=== PATIENT | male | born 1950 | race Caucasian/White ===

== ENCOUNTER 2017-04-27 11:35 | Inpatient (IN) ==
--- NOTE | 2017-04-27 08:31 | Anesthesia Evaluation PreOp ---
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 Other Medical History: Denies Any Significant HX Anesthesia History: No Prior Anesthetic Complications, Past Anesthesia ( aortabifem BPG, right fem-pop) Alcohol Use: none Drug use: none Medications and Allergies Aspirin Enteric Coated [Aspirin EC] 81 mg PO DAILY 07/10/15 [History] Calcipotriene [Dovonex] 1 appl TP AD 07/10/15 [History] Diclofenac Sodium [Voltaren] 1 appl TP QID 07/10/15 [History] FluocinoNIDE 0.05% CRM [Lidex] 1 appl TP DAILY 07/10/15 [History] Simvastatin [Zocor] 40 mg PO HS 07/10/15 [History] predniSONE [PredniSONE] 10 mg PO BIDWM 07/10/15 [History] traMADol [Ultram] 50 mg PO TID PRN 07/10/15 [History] Clopidogrel [Plavix] 75 mg PO DAILY #30 tablet 07/12/15 [Rx] OxyCODONE Immed Rel [Roxicodone 5 MG] 1 - 2 mg PO Q4H PRN #40 tablet 07/12/15 [ Rx] 3 Allergy/AdvReac Type Severity Reaction Status Date / Time Penicillins Allergy Hives Verified 07/10/15 17:33 - Meds/Allergy Pre-op Review Medications Reviewed: Yes Allergies Reviewed: Yes Beta Blockers on Current Med List: No Anesthesia Results - Labs Laboratory Tests 04/26/17 04/26/17 13:39 13:39 Hgb 13.4 Hct 40.6 Plt Count 185 Sodium 134 L Potassium 4.4 BUN 12 Creatinine 0.74 - Imaging Additional studies: CTA: IMPRESSION: Occluded right limb of the iliac graft. Occluded fem-fem bypass graft. Occluded right fem-pop bypass graft. One-vessel runoff in the anterior tibial arteryon the right due to geniculate collaterals. Moderate stenoses left superficial femoral artery and popliteal artery with three-vessel runoff. 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
[~2017-04-27 11:35] MED LIST: Vancomycin 1,000 MG, Sodium Chloride IRRigation 1,000 ML IR ONE
[2017-04-27] MEDS ORDERED: *HR* Midazolam HCl 2 MG/2 ML VIAL ONE (11:42)
[2017-04-27] MEDS ORDERED: *HR* Propofol 200 MG/20 ML VIAL IVP ONE ×2 (11:42→18:32)
[2017-04-27] MEDS ORDERED: *HR* FentaNYL (PF) 100 MCG/2 ML VIAL ONE (11:42)
[2017-04-27] MEDS ORDERED: Lidocaine -MPF 2% 2 ML VIAL ONE ×2 (11:44→13:21)
[2017-04-27] MEDS ORDERED: *HR* Rocuronium Bromide 50 MG/5 ML VIAL ONE ×2 (11:46→15:42)
[2017-04-27] MEDS: Ringers Solution, Lactated 1,000 ML IVC SCH (12:20)
[2017-04-27] MEDS ORDERED: Acetaminophen IV 1,000 MG/100 ML INFUS..BTL ONE (12:26)
[2017-04-27] MEDS ORDERED: Heparin 1,000 UNITS/500 mL 2,000 ML ONE (12:28)
--- NOTE | 2017-04-27 12:31 | History & Physical Report ---
Date of Encounter: 04/27/17 Time of Encounter: 12:25 24 Hour HP Update - Instructions Instructions: If the History and Physical is less than 30 days old and was completed prior to A.M. admission and or procedure and has NOT been updated on calendar day of procedure please complete this update prior to performing procedure. - Update Patient reports changes in Medical Condition: No Changes in examination, assessment, or condition: No Changes in Medication: No Preop tests/diagnostics Reviewed: Yes Surgery Remains Indicated: Yes Consent for Planned Operative Procedure(s) Verified: Yes - Pre-Operative Checklist Preoperative Checklist Indicated: Yes Prophylactic Antibiotic Ordered: Yes (Vancomycin due to risk of MRSA) Home Medications Include Beta Roger: No Beta Roger Taken Today (Day of Surgery): No Beta Roger Taken Yesterday (Day Prior to Surgery): No Is VTE Prophylaxis Indicated?: Yes
[2017-04-27] MEDS ORDERED: CeFAZolin Syr 2,000MG/20 ML 2,000 MG/20 ML SYRINGE IVPB ONE (12:35)
[2017-04-27] MEDS ORDERED: Heparin 1,000 UNITS/500 mL 500 ML ONE (12:36)
[2017-04-27] MEDS ORDERED: Ketamine *HR* 500 MG/10 ML MDV ONE (12:51)
[2017-04-27] MEDS ORDERED: *HR* Succinylcholine 200 MG/10 ML VIAL IVP ONE (12:52)
[2017-04-27] MEDS ORDERED: Dexamethasone 4 MG/ML VIAL ONE (13:52)
[2017-04-27] MEDS ORDERED: Ondansetron 4 MG/2 ML VIAL ONE (13:52)
[2017-04-27] MEDS ORDERED: *HR* PHENYLEPHRINE 1,000 MCG/10 ML SYRINGE IVP ONE ×3 (13:53→17:11)
[2017-04-27] MEDS ORDERED: Ondansetron 4 MG/2 ML VIAL IVP PRN (14:26)
[2017-04-27] MEDS ORDERED: *HR* Morphine 2 MG/ML SYRINGE IVP PRN (14:26)
--- NOTE | 2017-04-27 14:30 | Anesthesia Procedures ---
Date of Encounter: 04/27/17 Time of Encounter: 13:30 Procedures: Anesthesia - Arterial Line Consent obtained: written consent Time out performed: Yes Supplemental Oxygen via Nasal Cannula (L/min): 15 (FM) Local Anesthetic: Lidocaine 1% Amount of Anesthetic used (mls): 2 Size (Gauge): 20 Length (inches): 1 3/4 Technique Used: sterile prep, guide wire technique, direct puncture technique Post-Procedure: line taped into place, dry sterile dressing placed Patient tolerated procedure: well, no complications Complications: none Site: Radial R Vitals: see anesthetic record
[2017-04-27] MEDS ORDERED: *HR* Heparin 5,000 UNIT/ML VIAL ONE ×2 (15:04→15:56)
[2017-04-27] MEDS ORDERED: *HR* Magnesium Sulfate 1 GM/2 ML VIAL ONE (15:04)
[2017-04-27] MEDS ORDERED: EPHEDrine 50 MG/ML VIAL ONE ×2 (18:04→19:37)
[2017-04-27] MEDS ORDERED: Vancomycin 1,000 MG VIAL ONE (18:21)
[2017-04-27] MEDS ORDERED: Esmolol 100 MG/10 ML VIAL IVP ONE (20:01)
[2017-04-27] MEDS ORDERED: *HR* Promethazine 25 MG/ML VIAL IVP PRN (20:19)
[2017-04-27] MEDS ORDERED: Naloxone 0.4 MG/ML INJ IVP PRN (20:19)
[2017-04-27] MEDS ORDERED: Acetaminophen 325 MG TABLET PO PRN (20:19)
[2017-04-27] MEDS ORDERED: OXYCODONE Oral CONC 10 MG/0.5 ML ORAL.SYG SL PRN ×2 (20:19)
--- NOTE | 2017-04-27 20:19 | Operative Note ---
Date of procedure: 04/27/17 Pre-op diagnosis: Peripheral Vascular Disease with Rest Pain Post-op diagnosis: same Procedure: 1. Left to right femoral to femoral artery bypass graft thrombectomy with revision of proximal and distal anastamoses with hemashield patch angioplasty. 2. Left common and deep femoral artery endarterectomy. 3. Reoperative right common femoral to below knee popliteal artery bypass graft with 6mm PTFE Distaflo MiniCuff Graft. 4. Right anterior tibial artery and tibioperoneal trunk endarterectomy with bovine pericardial patch angioplasty. Complications: None Anesthesia: GETA Surgeon: Derek Carter Was there an engineer second assistant present: No Estimated blood loss (cc): 250 Specimen: Thrombus and plaque Condition: stable Disposition: PACU Procedure in Detail: Indications: The patient is a 67 year old fmale with a history of peripheral vascular disease with rest pain and hypertension. He has previously undergone an aortobifemoral bypass, a right femoral to popliteal artery bypass and a left femoral to right femoral artery bypass. The patient presented to clinic with rest pain. A CT revealed an occluded femoral to femoral artery bypass and an occluded right femoral to popliteal artery bypass. He was noted to have significant disease distal to his right femoral to popliteal artery bypass. Revascularization was recommended to alleviate his symptoms and reduce his risk of limb loss. Procedure: The patient was identified in the preoperative area. The risks, benefits and alternatives were discussed and all questions were answered. The patient was taken to the operating room and placed in the supine position on the operating room table. After the induction of general endotracheal anesthesia, the patient was cleaned and draped in the normal sterile fashion. An oblique incision was made sharply through his previous right groin scar overlying the femoral vessels. Hemostasis was obtained with electrocautery. Through a process of blunt, sharp and electrocautery dissection, the common, deep and superficial femoral arteries were dissected and surrounded with vessel loops. The right limb of the bypass graft was also dissected and surrounded with vessel loops. An incision was made sharply through his previous right medial thigh scar. Hemostasis was obtained with electrocautery. Through a process of blunt, sharp and electrocautery dissection, the above knee popliteal artery was dissected proximal and distal to the bypass graft and surrounded with vessel loops. The distal bypass graft was also dissected and surrounded with vessel loops. The patient received a 5000 unit bolus of heparin. Additional heparin was given throughout the case to maintain anticoagulation. After waiting adequate time or the heparin to circulate, the vessels were occluded with the vessel loops. A longitudinal incision was made through the right femoral graft anastamosis and extended distally into the [place] artery. No flow was noted on release of the loops. A 4 bruneian kevin catheter was passed into the femoral to femoral artery bypass graft and inflated. It was withdrawn and some acute thrombus and chronic embolic material was retrieved. This was sent to pathology. No flow was noted at this time. Additional passes of the catheter did not result in any antegrade flow. An oblique incision was made sharply through his previous left groin scar overlying the femoral vessels. Hemostasis was obtained with electrocautery. Through a process of blunt, sharp and electrocautery dissection, the left distal iliac artery as well as the deep and superficial femoral arteries were dissected and surrounded with vessel loops. The left limb of the bypass graft was also dissected and surrounded with vessel loops. A longitudinal incision was made through the left femoral graft anastamosis and extended distally into the [place] artery. Dense intimal hyperplasia and chronic thrombus was identified. A 4 bruneian kevin catheter was passed into the femoral to femoral artery bypass graft and inflated. It was withdrawn and acute thrombus and chronic embolic material was retrieved. The balloon passed easiliy between the anastamoses A dental freer was then used to perform a left common and deep femoral artery endarterectomy. Antegrade and retrograde flow was noted through the left femoral vessels upon release of the vessel loops. On the right an endarterctomy was performed on the common femoral artery. The right superficial and deep femoral arteries were noted to be chronically occluded. The origin of the right deep femoral artery could not be identified. The vessels and graft were flushed with heparinized saline. A 4 bruneian kevin catheter was passed distally through the right femoral to popliteal artery bypass graft. Significant thrombus was retrieved. The balloon would not pass below the knee joint. The distal anastamosis was opened and the balloon was passed towards the distal popliteal artery. Additional thrombus was retrieved on the first pass. However, the balloon would not pass the popliteal fossa. The graft was transected and the distal portion was oversewn with a 3-0 Prolene. An incision was made on the left medial calf sharply. Hemostasis was obtained with electrocautery. Through a process of blunt, sharp, and electrocautery dissection, the left below-knee popliteal artery was dissected proximally and distally and surrounded with vessel loops. A 6mm PTFE Distaflo mini-cuff graft was then tunneled between the thigh and calf incisions. The below knee popliteal vessels were occluded and a longitudinal arteriotomy was made in the popliteal artery. The distal end of the graft was sutured in place with a running 6-0 Prolene, but not tied. Heparinized saline was infused into the lumen. Tension was applied to the femoral vessel loops. The graft was cut to fit the graftotomy at the above knee popliteal artery. The graft was anastamosed with a running 6-0 Prolene. The vessels were flushed through the graft and heparin was infused into the lumen. The graft was clamped with an atraumatic clamp. Thrombin and gelfoam were used at the proximal anastamosis. The distal arterial anastomosis suture line was completed. Prior to completing the closure, the popliteal vessels were flushed and reoccluded. Heparinized saline was infused into the lumen. The anastamosis was tied and then flow was restored. Polyphasic signals were noted distal to the distal anastomosis. However, no tibial signals could be identified. The below knee popliteal artery was dissected distally. Firm plaque was noted to be present at the anterior tibial artery and tibioperoneal trunk. Dissection was then performed distally and vessel loops were used to surround the anterior tibial and tibioperoneal trunk arteries. A longitudinal arteriortomy was made distal to the distal bypass anastamosis and extended onto the tibioperoneal trunk. An endarterectomy was then performed with a dental freer on the anterior tibila artery and tibioperoneal trunk artery. Dense, calcified plaque was retrieved and sent as specimen. Retrograde flow as noted from both vessels upon release of the loops. The vessels were flushed with heparinized saline. A bovine pericartial patch was cut to fit the arteriotomy and sutured in place with a running 6-0 Prolene. Prior to completing the patch, the vessels were flushed and heparinized saline was then infused. Flow was then restored. Polyphasic tibial signals were identified at the ankle. The wounds were irrigated with antibiotic-containing saline. Thrombin and gelfoam were used to aid in hemostasis. Platelet rich and platelet poor plasma were infused into the wounds. Meticulous hemostasis was obtained throughout the wound with electrocautery. Wounds were reapproximated with layers of 2-0 and 3-0 Vicryl. Skin was reapproximated with 3-0 Monocryl. Sterile dressing was applied. The patient was extubated and taken to recovery room in stable condition.
[2017-04-27] MEDS ORDERED: 0.9 % Sodium Chloride 1,000 ML IVC SCH (20:30)
[2017-04-27] MEDS ORDERED: CeFAZolin Syr 2,000MG/20 ML 2,000 MG/20 ML SYRINGE IVPB SCH (21:00)
[2017-04-27] MEDS: *HR* Rivaroxaban 15 MG TABLET PO SCH (21:23)
[2017-04-27] MEDS: *HR* OxyCODONE Immed Rel 5 MG TABLET PO PRN (22:06)
[2017-04-27] MEDS: CeFAZolin Premix DUPLEX 2,000 MG/50 ML BAG IVPB SCH (23:20)
--- NOTE | 2017-04-27 23:58 | Anesthesia Evaluation Post Op ---
Date of Encounter: 04/27/17 Time of Encounter: 08:30 - Vital Signs Vital Signs: Vital Signs Temp Pulse Resp BP Pulse Ox 04/27/17 20:38 97.8 F 72 16 120/72 98 04/27/17 20:28 83 16 125/76 100 04/27/17 20:18 78 18 119/76 100 04/27/17 20:08 97.5 F L 74 20 142/57 100 Intake and Output 04/27/17 04/27/17 04/27/17 07:59 15:59 23:59 Output Total 800 / 800 Balance -800 / -800 Output: Estimated Blood Loss 250 / 250 Urine Amount (Catheter) 450 / 450 Catheter 100 / 100 Other: Weight 58.967 kg Patient Weight 04/27/17 23:59 Weight 58.967 kg - Lungs Lungs: Clear Ascult./Percussion - Airway Airway: Non-obstructed - Cardiovascular Baseline Rhythm - Mental Status Mental Status: Alert & Oriented, Answers Appropriately - Pain Pain Scale: 0 Pain Scale used: Numeric (1 - 10) - Nausea Vomiting Nausea Vomiting: Not Present - Hydration Hydration: Tolerates oral liquids, Umanzor catheter - Discharge PostOp Status: Transfer Patient to floor Anes Supervising Prov Stmt: Pt seen/evaluated, VSS And pt has met criteria for discharge to floor. - MD Qamar
[2017-04-28] MEDS ORDERED: Ketorolac 15 MG/ML VIAL IVP SCH
[2017-04-28] MEDS ORDERED: Vancomycin 0 MG in D5% in Water 250 ML IVPB ONE (00:30)
[2017-04-28] MEDS: *HR* Metoprolol 5 MG/5 ML VIAL IVP SCH ×4 (00:39→17:00)
[2017-04-28] MEDS: *HR* OxyCODONE Immed Rel 5 MG TABLET PO PRN ×3 (04:03→21:40)
[2017-04-28 04:53] LABS: Basophils % 0.2 %; Hematocrit 28.5 % (37.5-50.1); Immature Granulocytes % 0.3 % (0-4); Lymphocytes # 1.1 K/mcL (0.6-4.6); Lymphocytes % 11.3 %; Mean Corpuscular HGB Conc 33.7 g/dL (31.6-35.5); Mean Corpuscular Hemoglobin 29.9 pg (28.0-33.3); Mean Corpuscular Volume 88.8 fL (83.0-100.0); Mean Platelet Volume 10.4 fL (9.4-12.4); Monocytes # 0.9 K/mcL (0.0-1.3); Monocytes % 9.4 %; Neutrophils # 7.8 K/mcL (1.6-8.9); Platelet Count 148 K/mcL (140-400); Red Blood Count 3.21 M/mcL (4.19-5.50); Red Cell Distribution Width 15.7 % (11.5-14.5); Segmented Neutrophils % 78.8 %
[2017-04-28 04:57] LABS: Hemoglobin 9.6 g/dL (12.9-16.9)
[2017-04-28 05:11] LABS: BUN/Creatinine Ratio 21 (6-26); Blood Urea Nitrogen 15 mg/dL (8-23); Carbon Dioxide 22 mEq/L (23-29); Chloride 106 mEq/L (98-107); Glucose 141 mg/dL (70-105); Osmolality,Calculated 279 (280-300); Potassium 4.6 mEq/L (3.5-5.1); Sodium 133 mEq/L (136-145); eGFR For African Americans > 60 (> 60); eGFR For Non-African Americans > 60 (> 60)
[2017-04-28] MEDS: CeFAZolin Premix DUPLEX 2,000 MG/50 ML BAG IVPB SCH ×3 (05:57→21:47)
--- NOTE | 2017-04-28 06:39 | Discharge Summary ---
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 - Hospital Course Hospital course: Mr. Villarreal is a 67 year old male - Time Spent with Patient Total time spent providing and/or coordinating discharge services: - Discharge Medications Prescriptions: OxyCODONE/APAP 5/325 [Percocet 5/325 MG] 1 each PO Q6HR PRN 6 Days #24 tablet PRN Reason: postoperative pain Rivaroxaban [Xarelto] 20 mg PO DAILY #30 tablet Home Medications: Aspirin Enteric Coated [Aspirin EC] 81 mg PO DAILY 07/10/15 [History] FluocinoNIDE 0.05% CRM [Lidex] 1 appl TP DAILY 07/10/15 [History] Atorvastatin Calcium [Lipitor] 80 mg PO HS 04/27/17 [History] Ferrous Sulfate 325 mg PO BID 04/27/17 [History] OxyCODONE/APAP 5/325 [Percocet 5/325 MG] 1 each PO Q6HR PRN 6 Days #24 tablet [Rx] Rivaroxaban [Xarelto] 20 mg PO DAILY #30 tablet 04/28/17 [Rx] Allergies/Adverse Reactions: 3 Allergy/AdvReac Type Severity Reaction Status Date / Time Penicillins Allergy Hives Verified 04/27/17 12:33 Date of admission: 04/27/17 20:51 Primary care physician: Edgar Aponte MD Procedure(s) Performed: FEM-FEM bypass graft thrombectomy with revision, right femoral to below knee popliteal artery bypass, right tibial endaterterectomy. Discharging clinician: Derek Carter Anticipated date of discharge: 04/28/17 Exam Vital Signs, Last 4 Hours Temp Pulse Resp BP Pulse Ox 04/28/17 04:00 75 107/67 04/28/17 03:57 97.9 F 65 16 111/68 95 04/28/17 03:00 66 111/68 - Patient Status Disposition: Home, Self-Care Condition: Good Functional capacity at discharge: independent ambulation Overall status at discharge: patient is back to baseline - Discharge Instructions Follow Up With: Derek Carter MD [Partnered Physician] - 06/08/17 1:00 am Edgar Aponte MD [Primary Care Provider] - 05/05/17 11:00 am Additional Instructions: MAY REMOVE BANDAGES AND SHOWER ON 04/29/17. NO TUB BATHS OR SWIMMING UNTIL 05/24/17. WASH WOUNDS GENTLY AND PAT TO DRY. APPLY DRY GAUZE TO GROIN WOUND DAILY FOR [address] CARTER AT [phone] WITH QUESTIONS OR CONCERNS. - Diet and Activity Activity: increase activity as tolerated Diet: advance to your usual diet - VTE Documentation of Mechanical Device: Intermittent pneumatic compression device
[2017-04-28] MEDS: *HR* Rivaroxaban 15 MG TABLET PO SCH ×2 (08:04→21:41)
[2017-04-28] MEDS: FluocinoNIDE 0.05% CRM 15 GM TUBE TP SCH (08:05)
[2017-04-28] MEDS: Aspirin Enteric Coated 81 MG Tablet PO SCH (08:05)
[2017-04-28] MEDS: *HR* HYDROcodone/Acet 5/325 mg TABLET PO PRN (08:06)
[2017-04-28] MEDS: Ringers Solution, Lactated 1,000 ML IVC SCH (14:03)
[2017-04-29] MEDS: *HR* HYDROcodone/Acet 5/325 mg TABLET PO PRN ×2 (00:13→08:25)
[2017-04-29] MEDS: *HR* Metoprolol 5 MG/5 ML VIAL IVP SCH ×3 (00:14→11:40)
[2017-04-29] MEDS ORDERED: *HR* Heparin 5,000 UNIT/ML VIAL SQ SCH (06:00)
[2017-04-29] MEDS: FluocinoNIDE 0.05% CRM 15 GM TUBE TP SCH (08:22)
[2017-04-29] MEDS: *HR* Rivaroxaban 15 MG TABLET PO SCH (08:24)
[2017-04-29] MEDS: Aspirin Enteric Coated 81 MG Tablet PO SCH (08:24)
[2017-04-29 12:39] VITALS: BP 100/66
--- NOTE | 2017-04-29 12:42 | Physician Discharge Referral ---
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 For more information, call the [employer] Quit Line at 3-054-LGYA-NOW. - Dressing/Wound Care Site: Bilateral groins - Dry gauze daily for 7 days. Right thigh and calf - Dry gauze prn. - Diet/Nutrition Diet/Nutrition Orders: Regular - Activity Activity Orders: Up ad sandra - Services Needed Following services are medically necessary services: Home Health Aide, Physical Therapy - Transfer Medications Prescriptions: OxyCODONE/APAP 5/325 [Percocet 5/325 MG] 1 each PO Q6HR PRN 6 Days #24 tablet PRN Reason: postoperative pain Rivaroxaban [Xarelto] 20 mg PO DAILY #30 tablet Home Medications: Aspirin Enteric Coated [Aspirin EC] 81 mg PO DAILY 07/10/15 [History] FluocinoNIDE 0.05% CRM [Lidex] 1 appl TP DAILY 07/10/15 [History] Atorvastatin Calcium [Lipitor] 80 mg PO HS 04/27/17 [History] Ferrous Sulfate 325 mg PO BID 04/27/17 [History] OxyCODONE/APAP 5/325 [Percocet 5/325 MG] 1 each PO Q6HR PRN 6 Days #24 tablet [Rx] Rivaroxaban [Xarelto] 20 mg PO DAILY #30 tablet 04/28/17 [Rx] Allergies/Adverse Reactions: 3 Allergy/AdvReac Type Severity Reaction Status Date / Time Penicillins Allergy Hives Verified 04/27/17 12:33 Certification: Further, I certify that my clinical findings support that this patient is homebound (i.e. absences from home require considerable and taxing effort and are for medical reasons or mu-ism services or infrequently or short duration when for other reasons) because: Homebound Reason: Post-surgery restriction and or conditions limit ability to leave home, Leaving home requires considerable and taxing effort due to condition Attestation: My signature below is to certify that this patient is under my care and that I, or nurse practitioner, or a physician's pier master assistant working with me, has a face-to -face encounter with this patient.
[2017-04-29] MEDS: *HR* OxyCODONE Immed Rel 5 MG TABLET PO PRN (15:59)
--- NOTE | 2017-04-30 10:43 | Vascular/[facility] Progress Note ---
Date of Encounter: 04/29/17 Time of Encounter: 12:00 - Assessment and plan (1) Atherosclerosis of lower extremity with rest pain Status: Chronic Healing well postoperative day #2 after his thormbectomy, endarterectomy and bypass. PT evaluation today. Home today. Qualifiers: Peripheral atherosclerosis artery type: bypass graft, nonbiological Laterality: right Qualified Code(s): I70.621 - Atherosclerosis of nonbiological bypass graft(s) of the extremities with rest pain, right leg (2) Mixed hyperlipidemia Status: Chronic (3) Unspecified essential hypertension Status: Chronic (4) Chronic anemia Status: Chronic (5) Urinary retention due to benign prostatic hyperplasia Status: Chronic Unable to void after hamlin removed yesterday. Hamlin replaced. He was unable to void today after it was removed. His catheter will be replaced and he will follow-up with Urology as an outpatient. - Subjective Interval history: Discharge held yesterday due to inability to void. He had his catheter replaced. He was unable to void after it was removed. He is otherwise without complaints. - Physical Examination General: Present: Conversant Cardiac: Present: Reg Rate and Rhythm Lungs: Present: Normal Breath Sounds Neuro: Present: Alert and responsive Vascular: Present: Normal capillary refill, Pulse, normal (right pedal signals polyphasic), Surgical incisions (incisions clean, dry and intact without erythema or drainage) Abdomen: Present: Soft Skin: Present: No rashes noted on visualized skin - VTE Documentation of Mechanical Device: Intermittent pneumatic compression device Results 04/28/17 03:55 04/28/17 03:55 Consult Discharge Plan - Plan Instructions: Peripheral Vascular Disorders (GEN) Additional Instructions: MAY REMOVE BANDAGES AND SHOWER ON 04/29/17. NO TUB BATHS OR SWIMMING UNTIL 05/24/17. WASH WOUNDS GENTLY AND PAT TO DRY. APPLY DRY GAUZE TO GROIN WOUND DAILY FOR [address] TIAN AT [phone] WITH QUESTIONS OR CONCERNS. Referrals: Derek Tian MD [Partnered Physician] - 06/08/17 1:00 am Edgar Aponte MD [Primary Care Provider] - 05/05/17 11:00 am Alexander Patel MD [Partnered Physician] - 05/06/17 7:30 am Prescriptions: OxyCODONE/APAP 5/325 [Percocet 5/325 MG] 1 each PO Q6HR PRN 6 Days #24 tablet PRN Reason: postoperative pain Rivaroxaban [Xarelto] 20 mg PO DAILY #30 tablet
== END 2017-04-29 16:12 | disposition home or self-care (01) | DRG 254 ==
LOC: SAMDAY 11:35 → 2NNU 20:51
PROVIDERS: ADMIT Surgery; ATTEND Surgery

== ENCOUNTER 2017-10-07 12:38 | Inpatient (IN) ==
[2017-10-07] MEDS ORDERED: *HR* HYDROcodone/Acet 5/325 mg TABLET PO PRN ×2 (12:57→20:29)
[2017-10-07] MEDS ORDERED: Naloxone 0.4 MG/ML INJ IVP PRN ×2 (12:57→20:29)
[2017-10-07] MEDS ORDERED: *HR* OxyCODONE Immed Rel 5 MG TABLET PO PRN ×2 (12:57→20:29)
[2017-10-07] MEDS ORDERED: Acetaminophen 325 MG TABLET PO PRN ×2 (12:57→20:29)
[2017-10-07] MEDS ORDERED: OXYCODONE Oral CONC 10 MG/0.5 ML ORAL.SYG SL PRN ×4 (12:57→20:29)
--- NOTE | 2017-10-07 13:03 | Vascular/Endovascular H&P ---
Date of Encounter: 10/07/17 Time of Encounter: 11:30 Assessment and Plan (1) Atherosclerosis of lower extremity with rest pain Current Visit: No Status: Acute The patient has acute on chronic right lower extremity ischemia secondary to graft occlusion. His right lower extremity has a diminished pulse and decreased sensation. The patient reports disabling claudication as well as nocturnal rest pain. The patient also has a large nonhealing ulcer on the right medial distal calf. His FEM-FEM and right FEM-POP bypasses are occluded. His right ankle-brachial index is 0.0. The patient needs revascularization to reduce his risk of limb loss. Due to his advanced disease , he was informed that he is at increased risk for limb loss. A potential need for a right above-knee amputation was discussed with the patient He expressed understanding and wishes to proceed. Qualifiers: Peripheral atherosclerosis artery type: bypass graft, nonbiological Laterality: right Qualified Code(s): I70.621 - Atherosclerosis of nonbiological bypass graft(s) of the extremities with rest pain, right leg (2) Mixed hyperlipidemia Current Visit: No Status: Chronic He was counseled regarding atherosclerotic risk factor reduction. (3) Unspecified essential hypertension Current Visit: No Status: Chronic History of Present Illness Chief complaint: Peripheral vascular disease with rest pain and ulceration HPI: Mr. Villarreal is a 67 year old male with a history of hypertension, hyperlipidemia and peripheral vascular disease. He has previously undergone an aortobifemoral bypass, a FEM-FEM bypass and a rightfemoral to popliteal artery bypass. He has also required revision of his bypasses with thrombectomy. He now presents with acute on chronic limb ischemia due to graft occlusion. He reports that his symptoms began last Wednesday and have progressed. He reports severe disabling claudication and nocturnal rest pain. He reports a chronic right distal leg ulceration. He denies any gangrene. He denies chest pain or shortness of breath. Past Med Surg Social Fam HX - Past Medical History Medical history: hyperlipidemia, hypertension, peripheral artery disease Psychiatric history: no psych history - Past Surgical History Surgical History: vascular surgery Additional surgical history: Aortobifemoral bypass 2006, right femoral to above- knee popliteal artery bypass 2007, femoral to femoral artery bypass 2015, graft thrombectomy 04/2017 - Social History Smoking Status: Never smoker Smokeless Tobacco Status: No Alcohol use: none Drug use: none - Family History Father Living Status: Hx Family Cancer: Yes Mother Hx Family Neurologic Disorders: Yes (Alzheimers) Medications and Allergies Aspirin Enteric Coated [Aspirin EC] 81 mg PO HS 07/10/15 [History] Atorvastatin Calcium [Lipitor] 80 mg PO HS 04/27/17 [History] Ferrous Sulfate 325 mg PO BID 04/27/17 [History] Clopidogrel [Plavix] 75 mg PO HS 10/07/17 [History] 3 Allergy/AdvReac Type Severity Reaction Status Date / Time Penicillins Allergy Hives Verified 10/07/17 14:33 All Systems Review: The remainder of the systems were reviewed and are negative - Constitutional Constitutional: no chills, no fever(s) - Cardiovascular Cardiovascular: no chest pain at rest, no dyspnea at rest - Vascular Vascular: claudication, lower extremity coldness - Gastrointestinal Gastrointestinal: no abdominal pain Exam General: Present: Conversant, No Apparent Distress Neck: Absent: JVD, Left Carotid bruit, Right Carotid bruit Cardiac: Present: Reg Rate and Rhythm, Normal S1 and S2 Lungs: Present: Normal Breath Sounds, No Wheeze, Rales, Rhonchi Neuro: Present: Alert and responsive, Motor nerves grossly intact (Left), Sensory nerves grossly intact (Left), Other (Diminished sensation at left foot, right foot motor function mildly diminished.) Abdomen: Present: Soft, Non-tender Vascular: Present: Normal capillary refill (Left), Capillary refill delayed ( right), Pulse, absent (right femoral through tibials), Pulse, normal (Left lower extremity), Cyanosis (right foot), Color/Temperature (right foot cool compared to left) Skin: Present: No rashes noted on visualized skin, Wound/ulcer(s) (Large ulcer present on the right medial calf distal to the right below-knee incision, no erythema or drainage) Results 10/07/17 13:36 - Imaging / Other Tests Non Invasive Vascular Testing: report reviewed (Left to right femoral to femoral artery bypass occluded. Right femoral to popliteal artery bypass graft occluded. Right BETTY 0.0.)
--- NOTE | 2017-10-07 13:59 | Anesthesia Evaluation PreOp ---
Date of Encounter: 10/07/17 Time of Encounter: 13:57 - Past History Planned Operation: BLE thrombectomy, possible revision Cardiac History: HTN, Hyperlipidemia, Other (PVDz s/p mulitple revascularization surgeries, and revision bypasses) Pulmonary History: Former smoker (quit >10yrs ago) MORNING NANNY History: Denies Any Significant HX Other Medical History: Denies Any Significant HX Anesthesia History: No Prior Anesthetic Complications, Past Anesthesia (Aorto- BiFem Bypass, R-Fem-Pop, R-graft thrombectomy/Revision Fem-Pop) Alcohol Use: none Drug use: none Medications and Allergies Aspirin Enteric Coated [Aspirin EC] 81 mg PO HS 07/10/15 [History] Atorvastatin Calcium [Lipitor] 80 mg PO HS 04/27/17 [History] Ferrous Sulfate 325 mg PO BID 04/27/17 [History] Clopidogrel [Plavix] 75 mg PO HS 10/07/17 [History] 3 Allergy/AdvReac Type Severity Reaction Status Date / Time Penicillins Allergy Hives Verified 10/07/17 14:33 - Meds/Allergy Pre-op Review Medications Reviewed: Yes Allergies Reviewed: Yes Beta Blockers on Current Med List: No Anesthesia Results - Labs 10/07/17 13:36 Laboratory Results WBC 6.3 K/mcL (4.3-11.1) 10/07/17 13:36 RBC 4.57 M/mcL (4.19-5.50) 10/07/17 13:36 Hgb 13.4 g/dL (12.9-16.9) 10/07/17 13:36 Hct 39.6 % (37.5-50.1) 10/07/17 13:36 MCV 86.7 fL (83.0-100.0) 10/07/17 13:36 MCH 29.3 pg (28.0-33.3) 10/07/17 13:36 MCHC 33.8 g/dL (31.6-35.5) 10/07/17 13:36 RDW 15.2 % (11.5-14.5) H 10/07/17 13:36 Plt Count 172 K/mcL (140-400) 10/07/17 13:36 MPV 9.5 fL (9.4-12.4) 10/07/17 13:36 Immature Gran % 0.3 % (0-4) 10/07/17 13:36 Seg Neutrophils % 64.7 % 10/07/17 13:36 Lymphocytes % 20.4 % 10/07/17 13:36 Monocytes % 12.0 % 10/07/17 13:36 Eosinophils % 2.1 % 10/07/17 13:36 Basophils % 0.5 % 10/07/17 13:36 Neutrophils # 4.1 K/mcL (1.6-8.9) 10/07/17 13:36 Lymphocytes # 1.3 K/mcL (0.6-4.6) 10/07/17 13:36 Monocytes # 0.8 K/mcL (0.0-1.3) 10/07/17 13:36 Eosinophils # 0.1 K/mcL (0.0-0.6) 10/07/17 13:36 Basophils # 0.0 K/mcL (0.0-0.2) 10/07/17 13:36 PT 12.4 Seconds (9.4-12.1) H 10/07/17 13:36 INR 1.1 10/07/17 13:36 APTT 33.8 Seconds (26.0-36.0) 10/07/17 13:36 Specimen Rejected Hemolyzed 10/07/17 13:28 Blood Type AB POSITIVE 10/07/17 13:35 Antibody Screen NEGATIVE 10/07/17 13:35 Crossmatch See Detail 10/07/17 13:35 - Imaging EKG: image reviewed (48bpm - SINUS BRADYCARDIA Electronically Signed On 2017 14:23:10 EST by Oscar Domingo MD) Additional studies: 10/06/2017 Imaging Bypass Grafts: The common femoral artery to common femoral artery synthetic bypass graft is occluded. The inflow vessel is occluded. The proximal anastomosis is occluded. The proximal graft body is occluded. The mid graft body is occluded. The distal graft body is occluded. The distal anastomosis is occluded. The outflow vessel is occluded. The right common femoral artery to popliteal artery below knee synthetic bypass graft is occluded. The inflow vessel is occluded. The proximal anastomosis is occluded. The proximal graft body is occluded. The mid graft body is occluded. The distal graft body is occluded. The distal anastomosis is occluded. The outflow vessel is occluded. Prior Study: Significant changes noted compared to prior study dated: 07/24/2017. PREVIOUS PATIENT FEM FEM AND RT FEM POP GRAFTS. Anesthesia Exam Vital Signs Temp Pulse Resp BP Pulse Ox 10/07/17 13:24 98.2 F 61 18 197/98 98 Intake and Output 10/06/17 10/07/17 10/07/17 23:59 07:59 15:59 Other: Weight 52.118 kg Patient Weight 10/07/17 23:59 Weight 52.118 kg Height: 5'7" Weight: 114# 52kG NPO (# of Hours): 0800 Coffee w/cream & sugar - HEENT Pupil (Motor): Pupils equal, EOMI Mallampati: II Teeth: Edentulous Oral Opening: Greater than 3 - MORNING NANNY LOC: Oriented MORNING NANNY Motor: Normal RUE, Normal LUE, Normal RLE, Normal LLE, Normal Face MORNING NANNY Sensory: Normal: RUE, LUE, RLE, LLE, Face - Cardiac Rhythm: Regular Murmur: None - Pulmonary Breath Sounds: bilateral Clear Respiratory Effort: Symmetrical Anesthesia Assess/Plan ASA Score: 3 (PVDz, HTN, Chol, Former smoker) Modified [place] Scale for Level of Consciousness: Cooperative, oriented, and tranquil Anesthetic Plan: General Monitoring Plan: Standard Monitors Recovery Plan: PACU Anes Supervising Prov Stmt: Pt seen/evaluated, R&B Discussed, questions answered and consent obtained. Russell Foote MD
[2017-10-07 14:01] LABS: Basophils % 0.5 %; Eosinophils # 0.1 K/mcL (0.0-0.6); Eosinophils % 2.1 %; Hematocrit 39.6 % (37.5-50.1); Hemoglobin 13.4 g/dL (12.9-16.9); Immature Granulocytes % 0.3 % (0-4); Lymphocytes # 1.3 K/mcL (0.6-4.6); Lymphocytes % 20.4 %; Mean Corpuscular HGB Conc 33.8 g/dL (31.6-35.5); Mean Corpuscular Hemoglobin 29.3 pg (28.0-33.3); Mean Corpuscular Volume 86.7 fL (83.0-100.0); Mean Platelet Volume 9.5 fL (9.4-12.4); Monocytes # 0.8 K/mcL (0.0-1.3); Neutrophils # 4.1 K/mcL (1.6-8.9); Platelet Count 172 K/mcL (140-400); Red Blood Count 4.57 M/mcL (4.19-5.50); Red Cell Distribution Width 15.2 % (11.5-14.5); Segmented Neutrophils % 64.7 %
[2017-10-07 14:11] LABS: INR 1.1; Prothrombin Time 12.4 Seconds (9.4-12.1)
[2017-10-07 14:14] LABS: Activated Partial Thrombo Time 33.8 Seconds (26.0-36.0)
[2017-10-07] MEDS ORDERED: Heparin 1,000 UNITS/500 mL 500 ML ONE (14:48)
[2017-10-07] MEDS ORDERED: *HR* Propofol 200 MG/20 ML VIAL IVP ONE (14:55)
[2017-10-07] MEDS ORDERED: *HR* FentaNYL (PF) 100 MCG/2 ML VIAL ONE ×2 (14:55→15:42)
[2017-10-07] MEDS ORDERED: Ondansetron 4 MG/2 ML VIAL ONE (14:57)
[2017-10-07] MEDS ORDERED: *HR* Succinylcholine 200 MG/10 ML VIAL IVP ONE (14:57)
[2017-10-07] MEDS ORDERED: Lidocaine -MPF 2% 2 ML VIAL ONE ×2 (14:57→15:24)
[2017-10-07] MEDS ORDERED: Dexamethasone 4 MG/ML VIAL ONE (14:57)
[2017-10-07] MEDS ORDERED: *HR* Heparin 5,000 UNIT/ML VIAL ONE (15:16)
[2017-10-07] MEDS ORDERED: *HR* PHENYLEPHRINE 1,000 MCG/10 ML SYRINGE IVP ONE (15:16)
[2017-10-07] MEDS ORDERED: *HR* Remifentanil 1 MG VIAL IVP ONE (15:20)
[2017-10-07] MEDS ORDERED: *HR* Phenylephrine 10 MG/ML VIAL ONE (15:21)
[2017-10-07] MEDS ORDERED: Acetaminophen IV 1,000 MG/100 ML INFUS..BTL ONE (15:27)
[2017-10-07] MEDS ORDERED: Lidocaine -MPF 2% 5 ML VIAL ONE (15:27)
[2017-10-07] MEDS ORDERED: *HR* Midazolam HCl 2 MG/2 ML VIAL ONE (15:41)
[2017-10-07] MEDS ORDERED: Vancomycin 1,000 MG VIAL ONE ×2 (15:50→17:11)
[2017-10-07] MEDS ORDERED: Heparin 1,000 UNITS/500 mL 500 ML IVC ONE (16:00)
--- NOTE | 2017-10-07 17:24 | Electrocardiograph Report ---
[address] [address] Test Date: 2017-10-07 Pat Name: Mamadou Villarreal Department: 110 Room: 2N12 Gender: M Marketing Intelligence Manager: DONALD : 1950 Requested By: Derek Carter Order Number: [id number] Reading MD: Carmen De La Cruz Measurements Intervals Cando Rate: 59 P: 73 OK: 152 QRS: 36 QRSD: 82 T: 53 QT: 394 QTc: 393 Interpretive Statements SINUS BRADYCARDIA Electronically Signed On 10-07-2017 17:22:21 EDT by Carmen De La Cruz
[2017-10-07] MEDS ORDERED: *HR* Promethazine 25 MG/ML VIAL IVP PRN (18:40)
[2017-10-07] MEDS ORDERED: *HR* HYDROmorphone (PF) 1 MG/ML SYRINGE IVP PRN (18:40)
[2017-10-07] MEDS ORDERED: Albuterol 2.5 MG/3 ML NEBULIZER IH ONE (18:40)
--- NOTE | 2017-10-07 19:35 | Operative Note ---
Date of procedure: 10/07/17 Pre-op diagnosis: Peripheral vascular disease with acute right lower extremity ischemia Post-op diagnosis: same Procedure: 1. Femoral to femoral bypass graft thrombectomy with 5-Ivorian Kimberly embolectomy catheter. 2. Right femoral to popliteal artery bypass graft with 4-Ivorian and 3-Ivorian Kimberly embolectomy catheters Complications: None Anesthesia: ROBBIE Surgeon: Derek Carter Was there an medical technician assistant present: No Estimated blood loss (cc): 50 Specimen: Graft thrombosis Condition: stable Disposition: PACU Procedure in Detail: Indications: The patient is a 67-year-old male with a long history of peripheral vascular disease. He has recently undergone multiple procedures including an aortobifemoral bypass and right femoral to popliteal artery bypass a femoral to femoral artery bypass and prior graft thrombectomy. The patient presented to clinic with acute on chronic right lower extremity ischemia. He is also found have a chronic ulcer on the right calf. Duplex revealed that his femoral to femoral and right femoral to popliteal artery bypass grafts were occluded. The patient was then taken to the operating room for graft thrombectomy for revascularization. Procedure: The patient was identified in the preoperative area. The risks, benefits and alternatives were discussed with him and all questions were answered. The patient was then taken to the operating room and placed in the supine position on the operating table. The induction of general endotracheal anesthesia he was cleaned and draped in the normal sterile fashion. An oblique incision was made to the right groin scar sharply. Hemostasis was obtained with electrocautery. Through a process of blunt, sharp and electrocautery dissection the right femoral vessels and right limb of the femorofemoral bypass graft as well as the proximal end of the right femoral to popliteal artery bypass graft were dissected. The patient received 5000 units of heparin intravenously. After waiting adequate time for the heparin to circulate the grafts and vessels were occluded. A longitudinal arteriotomy was made into the anterior surface of the artery and extended into the femoral to popliteal artery bypass. Dense chronic thrombosis was identified within the right common femoral artery. Upon release of the clamps was no retrograde bleeding in the origin of the superficial femoral and deep femoral arteries could not be identified. A 5- Ivorian Kimberly and was re-catheter was passed through the femoral to femoral artery bypass. The balloon was inflated upon retrieval of acute and chronic thrombus, vigorous pulsatile flow was noted through the graft. After multiple passes no additional thrombus was retrieved. The bypass was flushed and clamped. A 4-Ivorian Kimberly embolus to be catheter was then passed distally into the right femoral to popliteal artery bypass graft. Upon retrieval significant thrombus was returned with acute and chronic components were present. Multiple additional passes did not reveal any additional thrombus. Minimal retrograde flow was noted. A 3-Ivorian Kimberly catheter was advanced distally through the graft. The 3-Ivorian Kimberly catheter would not pass into the level beyond the mid-calf. The graft was flushed with heparinized saline. The graftotomy was repaired with a running 5-0 Prolene suture. A strong pulse was noted left femoral vessels and flow was confirmed via Doppler. The wound was irrigated with antibiotic containing saline. Meticulous hemostasis was obtained throughout the procedure with electrocautery. Platelet rich and platelet poor plasma were infused into the wound. The wound was reapproximated with 2-0 Vicryl and 3-0 Vicryl suture. The skin was reapproximated with 3-0 Monocryl suture. A sterile dressing was applied. The patient was extubated and taken to the recovery room in stable condition.
--- NOTE | 2017-10-07 19:42 | Anesthesia Procedures ---
Date of Encounter: 10/07/17 Time of Encounter: 15:40 Procedures: Anesthesia - Arterial Line Consent obtained: verbal consent Time out performed: Yes Sedation: Versed (mg): 1 Sedation: Fentanyl (mcg): 1 Supplemental Oxygen via Nasal Cannula (L/min): 2 Local Anesthetic: Lidocaine 1% Amount of Anesthetic used (mls): 3 Size (Gauge): 20 Length (inches): 1 3/4 Technique Used: sterile prep, guide wire technique, direct puncture technique Post-Procedure: line taped into place Patient tolerated procedure: well, no complications Complications: none Site: Radial R Anes Supervising Prov Stmt: Sterile P&D, Landmarks identified. R-radial pulse palpated and readily cannulated w/ 20G Arrow. +BRB. Seldinger technique, CAtheter easily over wire. Catheter secured in place. Appropriate pulsatile flow noted in line. Appropriate wave forms noted on Monitor. Pt tolerated procedure well and without immediate complications. Russell Foote MD
--- NOTE | 2017-10-07 20:05 | Anesthesia Evaluation Post Op ---
Date of Encounter: 10/07/17 Time of Encounter: 20:05 - Vital Signs Vital Signs: Vital Signs/O2 Sat, Most Current Temp Pulse Resp BP Pulse Ox 99.3 F 96 22 144/81 100 10/07/17 19:33 10/07/17 19:53 10/07/17 19:53 10/07/17 19:53 10/07/17 19:53 - Lungs Lungs: Clear Ascult./Percussion - Airway Airway: Non-obstructed - Cardiovascular Regular Rate - Mental Status Mental Status: Alert & Oriented, Answers Appropriately - Pain Pain Scale: 0 Pain Scale used: Numeric (1 - 10) - Hydration Hydration: Ice chips, Uamnzor catheter - Discharge PostOp Status: Transfer Patient to floor
[2017-10-07 20:27] LABS: BUN/Creatinine Ratio 17 (6-26); Blood Urea Nitrogen 11 mg/dL (8-23); Calcium 9.3 mg/dL (8.6-10.3); Carbon Dioxide 24 mEq/L (23-29); Chloride 99 mEq/L (98-107); Glucose 79 mg/dL (70-105); Osmolality,Calculated 272 (280-300); Potassium 3.7 mEq/L (3.5-5.1); Sodium 132 mEq/L (136-145); eGFR For Non-African Americans > 60 (> 60)
[2017-10-07] MEDS ORDERED: *HR* Heparin 5,000 UNIT/ML VIAL IVP ONE (20:29)
[2017-10-07] MEDS ORDERED: *HR* Heparin 5,000 UNIT/ML VIAL IVP PRN ×2 (20:29)
[2017-10-07] MEDS ORDERED: *HR* Labetalol 20 MG/4 ML SYRINGE IVP PRN (20:29)
[2017-10-07] MEDS ORDERED: Heparin 25,000 UNIT/500 ML D5W 25,000 UNIT/500 ML BAG IVC SCH (20:29)
[2017-10-07] MEDS ORDERED: Ondansetron 4 MG/2 ML VIAL IVP PRN (20:29)
[2017-10-07] MEDS ORDERED: 0.9 % Sodium Chloride 1,000 ML IVC SCH (20:29)
[2017-10-07 20:53] LABS: Hematocrit 41.5 % (37.5-50.1); Hemoglobin 13.9 g/dL (12.9-16.9); Mean Corpuscular HGB Conc 33.5 g/dL (31.6-35.5); Mean Corpuscular Hemoglobin 28.8 pg (28.0-33.3); Mean Corpuscular Volume 85.9 fL (83.0-100.0); Mean Platelet Volume 9.9 fL (9.4-12.4); Platelet Count 181 K/mcL (140-400); Red Blood Count 4.83 M/mcL (4.19-5.50); Red Cell Distribution Width 15.2 % (11.5-14.5)
[2017-10-07] MEDS ORDERED: Aspirin Enteric Coated 81 MG Tablet PO SCH (21:00)
[2017-10-07 21:05] LABS: Heparin anti-factor XA UFH 0.61 IU/mL (0.30-0.70)
[2017-10-07 21:06] LABS: INR 1.1; Prothrombin Time 12.6 Seconds (9.4-12.1)
[2017-10-07] MEDS: *HR* Metoprolol 5 MG/5 ML VIAL IVP SCH (23:30)
[2017-10-08 04:01] LABS: Basophils % 0.4 %; Hematocrit 36.1 % (37.5-50.1); Immature Granulocytes % 0.7 % (0-4); Lymphocytes % 14.2 %; Mean Corpuscular HGB Conc 33.5 g/dL (31.6-35.5); Mean Corpuscular Hemoglobin 28.4 pg (28.0-33.3); Mean Corpuscular Volume 84.7 fL (83.0-100.0); Mean Platelet Volume 9.6 fL (9.4-12.4); Monocytes # 0.6 K/mcL (0.0-1.3); Monocytes % 8.6 %; Neutrophils # 5.6 K/mcL (1.6-8.9); Platelet Count 181 K/mcL (140-400); Red Blood Count 4.26 M/mcL (4.19-5.50); Red Cell Distribution Width 15.3 % (11.5-14.5); Segmented Neutrophils % 76.1 %
[2017-10-08 04:03] LABS: Hemoglobin 12.1 g/dL (12.9-16.9)
[2017-10-08 04:25] LABS: BUN/Creatinine Ratio 21 (6-26); Blood Urea Nitrogen 12 mg/dL (8-23); Calcium 8.8 mg/dL (8.6-10.3); Carbon Dioxide 21 mEq/L (23-29); Chloride 99 mEq/L (98-107); Glucose 87 mg/dL (70-105); Osmolality,Calculated 269 (280-300); Potassium 3.6 mEq/L (3.5-5.1); Sodium 130 mEq/L (136-145); eGFR For Non-African Americans > 60 (> 60)
[2017-10-08] MEDS: *HR* Metoprolol 5 MG/5 ML VIAL IVP SCH ×2 (05:03→11:35)
[2017-10-08] MEDS ORDERED: *HR* Heparin 5,000 UNIT/ML VIAL SQ SCH (06:00)
--- NOTE | 2017-10-08 07:47 | Discharge Summary ---
Orders not resulted at time of discharge: Pending orders 10/07/17 13:35 Red Blood Cells [BBK] Stat Type and Screen [BBK] Stat 10/07/17 18:56 Surgical Pathology [PTH] Routine 10/08/17 09:30 Heparin anti-factor XA UFH [COAG] Timed 10/09/17 04:00 Basic Metabolic Panel AM 0400 Complete Blood Count [HEME] AM 0400 Date of Encounter: 10/08/17 Time of Encounter: 07:40 - Discharge Diagnosis (1) Atheroscler nonbiologic bypass graft right leg w/ulceration calf Priority: Primary Status: Chronic Comments: The patient is postoperative day #1 after femoral to femoral artery bypass graft thrombectomy and right femoral popliteal artery bypass graft thrombectomy. He continues to have no signal at the level of the ankle. However he does have improved motor and sensory function. His pain is controlled with oxycodone. His wound is clean and dry and intact without any erythema or drainage. The patient may be discharged home today. He will need follow-up in clinic in 1-2 weeks for further evaluation. He will be started on cilostazol. He was informed that if he fails to heal his right leg wound or has progression of his symptoms will likely require a right above-knee amputation. (2) Mixed hyperlipidemia Priority: Secondary Status: Chronic (3) Unspecified essential hypertension Priority: Secondary Status: Chronic - Hospital Course Hospital course: Mr. Villarreal is a 67 year old male presented to [facility] with acute on chronic peripheral vascular disease of the right lower extremity. He initially reported symptoms for approximately 4-5 days but then later stated that his symptoms have been occurring for a longer period of time. The patient was found have a right lower extremity ulceration. He is found to have occluded grafts. He underwent a right femoral to popliteal artery bypass graft thrombectomy and a [id number]-rr-[id number] femoral to femoral bypass graft thrombectomy. He reports symptomatic improvement on postop day #1. He had improved motor and sensory function. However he did not have any pedal signals at the level of the ankle. His pain was adequately controlled on postoperative day #1. He was discharged in stable condition. - Time Spent with Patient Total time spent providing and/or coordinating discharge services: - Discharge Medications Prescriptions: OxyCODONE/APAP 5/325 [Percocet 5/325 MG] 1 each PO Q6HR PRN 7 Days #28 tablet PRN Reason: postoperative pain Cilostazol 50 mg PO BID #60 tablet Home Medications: Atorvastatin Calcium [Lipitor] 80 mg PO HS 04/27/17 [History] Ferrous Sulfate 325 mg PO BID 04/27/17 [History] Clopidogrel [Plavix] 75 mg PO HS 10/07/17 [History] Cilostazol 50 mg PO BID #60 tablet 10/08/17 [Rx] OxyCODONE/APAP 5/325 [Percocet 5/325 MG] 1 each PO Q6HR PRN 7 Days #28 tablet [Rx] Allergies/Adverse Reactions: 3 Allergy/AdvReac Type Severity Reaction Status Date / Time Penicillins Allergy Hives Verified 10/07/17 14:33 Date of admission: 10/07/17 12:50 Primary care physician: Edgar Aponte MD Procedure(s) Performed: Tzig-il-hbeuc femoral to femoral artery bypass graft thrombectomy, right femoral -popliteal artery bypass graft thrombectomy. Discharging clinician: Derek Carter Anticipated date of discharge: 10/08/17 Exam Vital Signs, Last 4 Hours Temp Pulse Resp BP Pulse Ox 10/08/17 04:04 98.5 F 64 18 116/68 95 General: Present: Conversant, No Apparent Distress Neck: Absent: JVD Cardiac: Present: Reg Rate and Rhythm Lungs: Present: Normal Breath Sounds Neuro: Present: Alert and responsive, Motor nerves grossly intact, Sensory nerves grossly intact, Other (Slightly diminished sensation and motor function of the right foot.) Vascular: Present: Normal capillary refill, Pulse, absent (Right pedal pulses are absent), Pulse, normal (Left pedal pulses are normal), Surgical incisions ( Clean, dry and intact without erythema or drainage, no hematoma). Absent: Cyanosis Skin: Present: Wound/ulcer(s) (Right medial calf ulceration appears stable.) - Patient Status Disposition: Home, Self-Care Condition: Good Functional capacity at discharge: uses cane/walker Overall status at discharge: patient is back to baseline - Discharge Instructions Instructions: Oxycodone/Acetaminophen (By mouth), Cilostazol (By mouth), Peripheral Vascular Disorders (DC) Follow Up With: Anabela Velez TOE POUNDER [Advanced Practice Nurse] - 10/13/17 9:00 am Derek Carter MD [Partnered Physician] - 10/19/17 1:40 pm Additional Instructions: May remove bandage and shower on 10/09/2017. Wash wounds gently and pat to dry. Applied dry gauze to wound daily for 7 days. No tub baths or swimming until 11/11/2017. Call Dr. Carter at [phone] with questions or concerns. - Diet and Activity Activity: increase activity as tolerated Diet: advance to your usual diet
[2017-10-08 07:49] VITALS: BP 184/98
--- NOTE | 2017-10-08 10:49 | Physician Discharge Referral ---
Home Health/Hosp Referral Info Transfer to: Home Health Provider in Charge Post Discharge: PCP - Diagnosis (1) Atherosclerosis of lower extremity with rest pain Priority: Primary Status: Acute (2) Mixed hyperlipidemia Priority: Secondary Status: Chronic (3) Unspecified essential hypertension Priority: Secondary Status: Chronic - Respiratory Orders Smoking Cessation: Smoking cessation has been advised. For more information, call the Scripted Tobacco Quit Line at 2-950-BJVC-NOW. - Dressing/Wound Care Site: Dry gauze to right groin wound daily for 7 days. - Diet/Nutrition Diet/Nutrition Orders: Regular - Activity Activity Orders: Ambulate, Walker (as needed) - Services Needed Following services are medically necessary services: Home Health Aide, Physical Therapy - Transfer Medications Prescriptions: OxyCODONE/APAP 5/325 [Percocet 5/325 MG] 1 each PO Q6HR PRN 7 Days #28 tablet PRN Reason: postoperative pain Cilostazol 50 mg PO BID #60 tablet Home Medications: Atorvastatin Calcium [Lipitor] 80 mg PO HS 04/27/17 [History] Ferrous Sulfate 325 mg PO BID 04/27/17 [History] Clopidogrel [Plavix] 75 mg PO HS 10/07/17 [History] Cilostazol 50 mg PO BID #60 tablet 10/08/17 [Rx] OxyCODONE/APAP 5/325 [Percocet 5/325 MG] 1 each PO Q6HR PRN 7 Days #28 tablet [Rx] Allergies/Adverse Reactions: 3 Allergy/AdvReac Type Severity Reaction Status Date / Time Penicillins Allergy Hives Verified 10/07/17 14:33 Certification: Further, I certify that my clinical findings support that this patient is homebound (i.e. absences from home require considerable and taxing effort and are for medical reasons or [employer] services or infrequently or short duration when for other reasons) because: Homebound Reason: Post-surgery restriction and or conditions limit ability to leave home, Leaving home requires considerable and taxing effort due to condition Attestation: My signature below is to certify that this patient is under my care and that I, or nurse practitioner, or a physician's assistant golf coach working with me, has a face-to -face encounter with this patient.
== END 2017-10-08 12:32 | disposition home or self-care (01) | DRG 253 ==
LOC: 2NNU 12:50
PROVIDERS: ADMIT Surgery; ATTEND Surgery

== ENCOUNTER 2018-01-07 12:05 | Inpatient (IN) ==
--- NOTE | 2018-01-07 11:50 | Anesthesia Evaluation PreOp ---
Date of Encounter: 01/07/18 Time of Encounter: 11:48 - Past History Planned Operation: Right above knee amputation Cardiac History: HTN, Hyperlipidemia, Other (PVD s/p multiple revascularizations and revision bypasses) Pulmonary History: Former smoker, Smoking Cessation (>10yrs) GLOVE BOARDER History: Denies Any Significant HX Other Medical History: Denies Any Significant HX Anesthesia History: No Prior Anesthetic Complications, Past Anesthesia (Aorto- bifem bypass, R fem-pop, R graft thrombectomy) Drug use: none Medications and Allergies RX: Atorvastatin Calcium [Lipitor] 80 mg PO HS 04/27/17 [History] RX: Ferrous Sulfate 325 mg PO BID 04/27/17 [History] RX: Clopidogrel [Plavix] 75 mg PO HS 10/07/17 [History] RX: Cilostazol 50 mg PO BID #60 tablet 10/08/17 [Rx] RX: OxyCODONE/APAP 5/325 [Percocet 5/325 MG] 1 each PO Q6HR PRN 7 Days #28 tablet 10/08/17 [Rx] Allergy/AdvReac Type Severity Reaction Status Date / Time Penicillins Allergy Hives Verified 10/07/17 14:33 - Meds/Allergy Pre-op Review Medications Reviewed: Yes Allergies Reviewed: Yes Beta Blockers on Current Med List: No Anesthesia Results - Labs Laboratory Tests 01/04/18 01/04/18 01/04/18 15:23 15:23 15:23 WBC 11.1 Hgb 13.2 Hct 39.9 Plt Count 287 PT 10.4 INR 0.9 APTT 29.5 Sodium 135 L Potassium 4.8 Chloride 100 Carbon Dioxide 29 BUN 17 Creatinine 0.74 Glucose 94 - Imaging EKG: report reviewed ( Interpretive Statements SINUS BRADYCARDIA Electronically Signed On 10-07-2017 17:22:21 EDT by Carmen De La Cruz) Anesthesia Exam O2 Sat Height 1.6 m Weight 54.431 kg O2 Sat by Pulse Oximetry 95 Vital Signs Temp Pulse Resp BP Pulse Ox 97.7 F 91 18 117/79 95 01/07/18 12:27 01/07/18 12:27 01/07/18 12:27 01/07/18 12:27 01/07/18 12:27 Weight: 54kg - HEENT Pupil (Motor): Pupils equal, EOMI Mallampati: II Teeth: Edentulous Oral Opening: Greater than 3 - GLOVE BOARDER LOC: Oriented GLOVE BOARDER Motor: Normal RUE, Normal LUE, Normal RLE, Normal LLE, Normal Face GLOVE BOARDER Sensory: Normal: RUE, LUE, RLE, LLE, Face - Cardiac Rhythm: Regular - Pulmonary Breath Sounds: bilateral Clear Respiratory Effort: Symmetrical Anesthesia Assess/Plan ASA Score: 3 (HTN, PVD, hyperlipidemia) Anesthetic Plan: General Monitoring Plan: Standard Monitors Recovery Plan: PACU
[2018-01-07] MEDS ORDERED: Acetaminophen IV 1,000 MG/100 ML INFUS..BTL ONE (12:52)
[2018-01-07] MEDS ORDERED: CeFAZolin Syr 2,000MG/20 ML 2,000 MG/20 ML SYRINGE IVPB ONE (13:02)
[2018-01-07] MEDS ORDERED: Ringers Solution, Lactated 1,000 ML IVC SCH (13:15)
[2018-01-07] MEDS ORDERED: Lidocaine -MPF 2% 2 ML VIAL ONE (13:17)
[2018-01-07] MEDS ORDERED: Lidocaine -MPF 4% 5 ML AMPUL ONE (13:17)
[2018-01-07] MEDS ORDERED: Dexamethasone 4 MG/ML VIAL ONE (13:17)
[2018-01-07] MEDS ORDERED: Ondansetron 4 MG/2 ML VIAL ONE (13:17)
[2018-01-07] MEDS ORDERED: *HR* Succinylcholine 200 MG/10 ML VIAL IVP ONE (13:17)
--- NOTE | 2018-01-07 13:17 | History & Physical Report ---
Date of Encounter: 01/07/18 Time of Encounter: 13:00 24 Hour HP Update - Instructions Instructions: If the History and Physical is less than 30 days old and was completed prior to A.M. admission and or procedure and has NOT been updated on calendar day of procedure please complete this update prior to performing procedure. - Update Patient reports changes in Medical Condition: No Changes in examination, assessment, or condition: No Changes in Medication: No Preop tests/diagnostics Reviewed: Yes Surgery Remains Indicated: Yes Consent for Planned Operative Procedure(s) Verified: Yes - Pre-Operative Checklist Preoperative Checklist Indicated: Yes Prophylactic Antibiotic Ordered: Yes (vancomycin due to MRSA risk) Home Medications Include Beta Roger: No Beta Roger Taken Today (Day of Surgery): No Beta Roger Taken Yesterday (Day Prior to Surgery): No Is VTE Prophylaxis Indicated?: Yes
[2018-01-07] MEDS ORDERED: *HR* FentaNYL (PF) 100 MCG/2 ML VIAL ONE (13:18)
[2018-01-07] MEDS ORDERED: *HR* Propofol 200 MG/20 ML VIAL IVP ONE (13:18)
[2018-01-07] MEDS ORDERED: *HR* Midazolam HCl 2 MG/2 ML VIAL ONE (13:18)
[2018-01-07] MEDS ORDERED: *HR* PHENYLEPHRINE 1,000 MCG/10 ML SYRINGE IVP ONE (14:04)
[2018-01-07] MEDS ORDERED: *HR* Morphine 10 MG/ML VIAL ONE (14:17)
[2018-01-07] MEDS ORDERED: EPHEDrine 50 MG/ML VIAL ONE (14:38)
[2018-01-07] MEDS ORDERED: *HR* Promethazine 25 MG/ML VIAL IVP PRN (15:47)
[2018-01-07] MEDS ORDERED: *HR* OxyCODONE Immed Rel 5 MG TABLET PO PRN (15:47)
[2018-01-07] MEDS ORDERED: Naloxone 0.4 MG/ML INJ IVP PRN (15:47)
[2018-01-07] MEDS ORDERED: Acetaminophen 325 MG TABLET PO PRN (15:47)
[2018-01-07] MEDS ORDERED: OXYCODONE Oral CONC 10 MG/0.5 ML ORAL.SYG SL PRN ×2 (15:47)
[2018-01-07] MEDS ORDERED: 0.9 % Sodium Chloride 1,000 ML IVC SCH (15:47)
[2018-01-07] MEDS ORDERED: *HR* Labetalol 20 MG/4 ML SYRINGE IVP PRN (15:47)
[2018-01-07] MEDS: predniSONE 10 MG TABLET PO SCH (17:35)
[2018-01-07] MEDS: Ketorolac 15 MG/ML VIAL IVP SCH (17:35)
[2018-01-07] MEDS: *HR* Metoprolol 5 MG/5 ML VIAL IVP SCH (17:41)
--- NOTE | 2018-01-07 17:54 | Anesthesia Evaluation Post Op ---
Date of Encounter: 01/07/18 Time of Encounter: 15:35 - Vital Signs Vital Signs: Selected Entries 01/07/18 17:38 Temperature 97.7 F Pulse Rate 90 Respiratory Rate 14 Blood Pressure 115/71 O2 Sat by Pulse Oximetry 94 - Lungs Lungs: Clear Ascult./Percussion - Airway Airway: Non-obstructed - Cardiovascular Regular Rate - Mental Status Mental Status: Alert & Oriented, Answers Appropriately - Pain Pain Scale: 4 - Nausea Vomiting Nausea Vomiting: Not Present - Hydration Hydration: Ice chips - Discharge PostOp Status: Transfer Patient to floor
[2018-01-07] MEDS: Gabapentin 300 MG CAPSULE PO SCH (21:10)
[2018-01-07] MEDS: *HR* HYDROcodone/Acet 5/325 mg TABLET PO PRN (21:16)
[2018-01-08] MEDS: *HR* Metoprolol 5 MG/5 ML VIAL IVP SCH ×4 (00:28→18:35)
[2018-01-08] MEDS: Ketorolac 15 MG/ML VIAL IVP SCH ×4 (00:28→18:35)
[2018-01-08] MEDS ORDERED: *HR* Heparin 5,000 UNIT/ML VIAL SQ SCH (06:00)
[2018-01-08 06:01] LABS: Basophils % 0.1 %; Eosinophils % 0.1 %; Hematocrit 32.6 % (37.5-50.1); Immature Granulocytes % 0.5 % (0-4); Lymphocytes # 0.9 K/mcL (0.6-4.6); Lymphocytes % 5.8 %; Mean Corpuscular HGB Conc 33.4 g/dL (31.6-35.5); Mean Corpuscular Hemoglobin 30.7 pg (28.0-33.3); Mean Corpuscular Volume 91.8 fL (83.0-100.0); Mean Platelet Volume 8.8 fL (9.4-12.4); Monocytes # 1.3 K/mcL (0.0-1.3); Monocytes % 8.3 %; Neutrophils # 13.3 K/mcL (1.6-8.9); Platelet Count 209 K/mcL (140-400); Red Blood Count 3.55 M/mcL (4.19-5.50); Red Cell Distribution Width 16.8 % (11.5-14.5); Segmented Neutrophils % 85.2 %
[2018-01-08] MEDS: *HR* Heparin 5,000 UNIT/ML VIAL SQ SCH ×2 (06:02→18:33)
[2018-01-08] MEDS: *HR* HYDROcodone/Acet 5/325 mg TABLET PO PRN ×3 (06:06→22:31)
[2018-01-08 06:15] LABS: Hemoglobin 10.9 g/dL (12.9-16.9)
[2018-01-08 06:17] LABS: BUN/Creatinine Ratio 25 (6-26); Blood Urea Nitrogen 24 mg/dL (8-23); Calcium 8.5 mg/dL (8.6-10.3); Carbon Dioxide 21 mEq/L (23-29); Chloride 104 mEq/L (98-107); Glucose 116 mg/dL (70-105); Osmolality,Calculated 277 (280-300); Potassium 5.1 mEq/L (3.5-5.1); Sodium 131 mEq/L (136-145); eGFR For Non-African Americans > 60 (> 60)
[2018-01-08] MEDS: predniSONE 10 MG TABLET PO SCH ×2 (07:56→15:19)
[2018-01-08] MEDS: Gabapentin 300 MG CAPSULE PO SCH ×3 (07:57→22:26)
--- NOTE | 2018-01-08 11:37 | Vascular/[facility] Progress Note ---
Date of Encounter: 01/08/18 Time of Encounter: 11:34 (Status post right ygevb-bgw-yslx amputation.) - Assessment and plan (1) Critical ischemia of lower extremity Current Visit: No Status: Acute Status post right hbddp-tfy-rujw amputation for severe ischemia right lower extremity. The patient is doing well. He denies any pain in his right leg. He is so far happy with the outcome of his procedure. - Subjective Interval history: Status post right iztsd-tww-pdzc amputation. He is doing well. He denies any pain. He is very comfortable. Vital Signs, Last 4 Hours Temp Pulse Resp BP Pulse Ox 01/08/18 10:58 97.8 F 70 18 128/72 96 01/08/18 09:02 97.7 F 71 16 124/74 95 01/08/18 08:06 57 18 128/65 99 - Physical Examination Vascular: Present: Amputation(s) Other: Right lrpiq-mkw-netc amputation is covered. - VTE Documentation of Mechanical Device: Intermittent pneumatic compression device Deep Vein Thrombosis/Pulmonary Embolism Present on Admission: No Results 01/08/18 05:29 01/08/18 05:29 Lab Results, Last 24 hours 01/08/18 01/08/18 05:29 05:29 WBC 15.6 H Hgb 10.9 L D Hct 32.6 L Plt Count 209 Sodium 131 L Potassium 5.1 Chloride 104 Carbon Dioxide 21 L BUN 24 H Creatinine 0.96 Glucose 116 H Calcium 8.5 L Consult Discharge Plan - Plan Referrals: Derek Carter MD [Partnered Physician] - 02/16/18 1:00 pm Edgar Aponte MD [Primary Care Provider] -
[2018-01-09] MEDS: *HR* Metoprolol 5 MG/5 ML VIAL IVP SCH ×5 (00:33→23:39)
[2018-01-09] MEDS: Ketorolac 15 MG/ML VIAL IVP SCH ×5 (00:33→23:39)
[2018-01-09 05:07] LABS: Basophils % 0.1 %; Eosinophils # 0.1 K/mcL (0.0-0.6); Eosinophils % 0.7 %; Hematocrit 29.9 % (37.5-50.1); Immature Granulocytes % 0.6 % (0-4); Lymphocytes # 1.3 K/mcL (0.6-4.6); Lymphocytes % 9.9 %; Mean Corpuscular HGB Conc 33.4 g/dL (31.6-35.5); Mean Corpuscular Hemoglobin 30.5 pg (28.0-33.3); Mean Corpuscular Volume 91.2 fL (83.0-100.0); Mean Platelet Volume 9.3 fL (9.4-12.4); Monocytes # 1.2 K/mcL (0.0-1.3); Monocytes % 9.2 %; Neutrophils # 10.6 K/mcL (1.6-8.9); Platelet Count 207 K/mcL (140-400); Red Blood Count 3.28 M/mcL (4.19-5.50); Red Cell Distribution Width 16.5 % (11.5-14.5); Segmented Neutrophils % 79.5 %
[2018-01-09 05:24] LABS: BUN/Creatinine Ratio 33 (6-26); Blood Urea Nitrogen 26 mg/dL (8-23); Calcium 8.4 mg/dL (8.6-10.3); Carbon Dioxide 21 mEq/L (23-29); Chloride 103 mEq/L (98-107); Glucose 98 mg/dL (70-105); Osmolality,Calculated 275 (280-300); Potassium 5.1 mEq/L (3.5-5.1); Sodium 130 mEq/L (136-145); eGFR For Non-African Americans > 60 (> 60)
[2018-01-09] MEDS: *HR* Heparin 5,000 UNIT/ML VIAL SQ SCH ×2 (05:30→18:11)
[2018-01-09] MEDS: *HR* HYDROcodone/Acet 5/325 mg TABLET PO PRN (05:40)
[2018-01-09] MEDS: Gabapentin 300 MG CAPSULE PO SCH ×3 (07:47→20:59)
[2018-01-09] MEDS: predniSONE 10 MG TABLET PO SCH ×2 (07:47→18:10)
--- NOTE | 2018-01-09 10:43 | Vascular/[facility] Progress Note ---
Date of Encounter: 01/09/18 Time of Encounter: 10:43 (Status post right leg amputation) - Assessment and plan (1) Critical ischemia of lower extremity Current Visit: No Status: Acute Status post right gremn-nfv-mnnj amputation for severe ischemia right lower extremity. The patient is doing well. He denies any pain in his right leg. He is so far happy with the outcome of his procedure. (2) Above knee amputation of right lower extremity Current Visit: Yes Status: Acute The pain is controlled. The surgical site was wrapped. - Subjective Interval history: Status post right egdyy-ktt-ldeq amputation. He is doing well. He denies any pain. He is very comfortable. Vital Signs, Last 4 Hours Temp Pulse Resp BP Pulse Ox 01/09/18 07:57 66 01/09/18 07:54 63 18 95 01/09/18 07:35 98.2 F 77 18 132/79 96 - Physical Examination General: Present: No Apparent Distress HEENT: Present: Pupils equal Cardiac: Present: Reg Rate and Rhythm, Normal S1 and S2, No Murmur Lungs: Present: Normal Breath Sounds, No Wheeze, Rales, Rhonchi Neuro: Present: Alert and responsive Vascular: Present: Normal capillary refill, Pulse, normal Abdomen: Present: Soft, Non-tender Skin: Present: No rashes noted on visualized skin Musculoskeletal: Present: No Chest Wall Tenderness, Other (Status post right pdaii-zhr-npuo amputation. Dressing is in place and left intact.) - VTE Documentation of Mechanical Device: Intermittent pneumatic compression device Deep Vein Thrombosis/Pulmonary Embolism Present on Admission: No Results 01/09/18 04:20 01/09/18 04:20 Lab Results, Last 24 hours 01/09/18 01/09/18 04:20 04:20 WBC 13.4 H Hgb 10.0 L Hct 29.9 L Plt Count 207 Sodium 130 L Potassium 5.1 Chloride 103 Carbon Dioxide 21 L BUN 26 H Creatinine 0.79 Glucose 98 Calcium 8.4 L Consult Discharge Plan - Plan Referrals: Derek Carter MD [Partnered Physician] - 02/16/18 1:00 pm Edgar Aponte MD [Primary Care Provider] -
[2018-01-10] MEDS: *HR* Metoprolol 5 MG/5 ML VIAL IVP SCH ×3 (05:01→17:53)
[2018-01-10] MEDS: Ketorolac 15 MG/ML VIAL IVP SCH ×4 (05:02→17:53)
[2018-01-10] MEDS: *HR* Heparin 5,000 UNIT/ML VIAL SQ SCH ×2 (05:02→17:53)
[2018-01-10] MEDS: predniSONE 10 MG TABLET PO SCH ×2 (07:52→17:57)
[2018-01-10] MEDS: Gabapentin 300 MG CAPSULE PO SCH ×2 (07:52→15:00)
--- NOTE | 2018-01-10 08:09 | Operative Note ---
Date of procedure: 01/07/18 Pre-op diagnosis: Peripheral vascular disease with gangrene Post-op diagnosis: same Procedure: Right above-knee amputation. Complications: None Surgeon: Derek Carter Was there an retail sales assistant present: No Estimated blood loss (cc): 150 Specimen: Right lower extremity Condition: stable Disposition: PACU Procedure in Detail: Indications: The patient is a 67-year-old male with a long history of peripheral vascular disease. He is undergone multiple operative procedures for his vascular disease. The patient presented to clinic with gangrenous changes of the right foot. No further options for revascularization therefore an above- knee amputation was recommended. The patient expressed understanding and wished to proceed. Procedure: The patient was identified in the holding area. The risks, benefits and alternatives were discussed and all questions were answered. The patient was taken to the operating room and placed in the supine position on the operating room table. After the induction of general endotracheal anesthesia, the patient was cleaned and draped in the normal sterile fashion. A standard incision was demarcated on the right thigh with a marker. The skin was incised with a #15 blade. Using a process of blunt, sharp and electrocautery dissection, the muscle fascia was traversed. The neurovascular bundles identified in the artery and vein were clamped and divided the nerve was not transected. The periosteum was elevated off of the femur. Using a powered saw, the mid level of the right femur was then transected. The artery and vein were then individually suture ligated with 0 silk suture. The nerve was grasped and transected as high as possible. The wound was irrigated. Meticulous hemostasis was obtained through out the wound with electrocautery. The fascial layers were reapproximated with Vicryl surture. Skin was reapproximated with jose antonio. A sterile dressing was applied. The patient was extubated and taken to the recovery room in stable condition.
--- NOTE | 2018-01-10 09:22 | Discharge Summary ---
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 His wound is healing well. The patient has progressed with physical therapy while an inpatient to the point where he may be discharged to home with in-home physical therapy and occupational therapy. The patient's ambulatory status cannot be resolved with a cane or walker. He is willing to use a wheelchair and is physically and mentally capable of using his wheelchair. He will be able to complete all the daily activities with a wheelchair. He will be discharged today in stable condition. He will continue with daily dressing changes. He will continue with physical therapy and I can result therapy. He will follow-up in clinic for further evaluation and to remove the jose antonio in a few weeks. (2) Mixed hyperlipidemia Priority: Secondary Status: Chronic Comments: The patient was counseled regarding atherosclerotic risk factor reduction. (3) Unspecified essential hypertension Priority: Secondary Status: Chronic (4) Chronic anemia Priority: Secondary Status: Chronic - Hospital Course Hospital course: Mr. Villarreal is a 67 year old male - Time Spent with Patient Total time spent providing and/or coordinating discharge services: - Discharge Medications Prescriptions: OxyCODONE/APAP 5/325 [Percocet 5/325 MG] 1 each PO Q6HR PRN 5 Days #20 tablet PRN Reason: Postoperative pain Home Medications: Atorvastatin Calcium [Lipitor] 80 mg PO HS 04/27/17 [History] Ferrous Sulfate 325 mg PO BID 04/27/17 [History] Clopidogrel [Plavix] 75 mg PO HS 10/07/17 [History] Docusate [Colace] 200 mg PO DAILY 01/07/18 [History] Gabapentin [Neurontin] 600 mg PO TID 01/07/18 [History] Lisinopril [Zestril] 5 mg PO DAILY 01/07/18 [History] predniSONE [PredniSONE] 10 mg PO BIDWM 01/07/18 [History] OxyCODONE/APAP 5/325 [Percocet 5/325 MG] 1 each PO Q6HR PRN 5 Days #20 tablet 01/10/18 [Rx] Allergies/Adverse Reactions: Allergy/AdvReac Type Severity Reaction Status Date / Time Penicillins Allergy Hives Verified 10/07/17 14:33 Date of admission: 01/07/18 15:46 Primary care physician: Edgar Aponte MD Consults: 01/07/18 15:47 Consult to Occupational Therapy [CONS] Routine Comment: Evaluate, develop and implement POC Reason for Consult: pvd, S/P RIGHT AKA, bedrest until AM 01/08/18 Does patient have active BEDREST order?: No Is patient medically & hemodynamically stable?: Yes Patient assessed for mobility or mobilized this visit?: No Consult to [employer]erg[employer] Roving Winder [CONS] Routine Reason for SW Consult: pvd, S/P RIGHT AKA, neds D/C planning, likely ready for D/C on 01/10/18. Exam Vital Signs, Last 4 Hours Temp Pulse Resp BP Pulse Ox 01/10/18 07:59 60 97 01/10/18 07:02 98.3 F 58 18 141/78 99 - Patient Status Disposition: Home Health Service Condition: Good Functional capacity at discharge: wheelchair bound Overall status at discharge: patient is progressing back to baseline - Discharge Instructions Instructions: Oxycodone/Acetaminophen (By mouth), Above the Knee Amputation (DC) Follow Up With: Derek Carter MD [Partnered Physician] - 02/16/18 1:00 pm Bong Black MD [Non-Partnered Physician] - 01/17/18 10:15 am Additional Instructions: May shower. Wash wound gently and pat to dry. no tub baths or swimming all jose antonio are in place. Call Dr. Carter at [phone] with questions or concerns. - Diet and Activity Activity: as per physical therapy Diet: advance to your usual diet - VTE Documentation of Mechanical Device: Intermittent pneumatic compression device Deep Vein Thrombosis/Pulmonary Embolism Present on Admission: No
--- NOTE | 2018-01-10 16:05 | Physician Discharge Referral ---
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 For more information, call the [place] Tobacco Quit Line at 5-829-SHQC-NOW. - Dressing/Wound Care Site: Applied dry gauze to wound was then wrapped with a Kerlix gauze followed by a comfortably wrapped Thomas bandage. - Diet/Nutrition Diet/Nutrition Orders: Cardiac - Activity Activity: List: Progressive activity per recommendations of physical therapy and occupational therapy. The patient is currently wheelchair-bound with good rehabilitation potential.. - Services Needed Following services are medically necessary services: Home Health Aide, Physical Therapy, Occupational Therapy - Transfer Medications Prescriptions: OxyCODONE/APAP 5/325 [Percocet 5/325 MG] 1 each PO Q6HR PRN 5 Days #20 tablet PRN Reason: Postoperative pain Home Medications: Atorvastatin Calcium [Lipitor] 80 mg PO HS 04/27/17 [History] Ferrous Sulfate 325 mg PO BID 04/27/17 [History] Clopidogrel [Plavix] 75 mg PO HS 10/07/17 [History] Docusate [Colace] 200 mg PO DAILY 01/07/18 [History] Gabapentin [Neurontin] 600 mg PO TID 01/07/18 [History] Lisinopril [Zestril] 5 mg PO DAILY 01/07/18 [History] predniSONE [PredniSONE] 10 mg PO BIDWM 01/07/18 [History] OxyCODONE/APAP 5/325 [Percocet 5/325 MG] 1 each PO Q6HR PRN 5 Days #20 tablet 01/10/18 [Rx] Allergies/Adverse Reactions: Allergy/AdvReac Type Severity Reaction Status Date / Time Penicillins Allergy Hives Verified 10/07/17 14:33 Certification: Further, I certify that my clinical findings support that this patient is homebound (i.e. absences from home require considerable and taxing effort and are for medical reasons or gnosticist services or infrequently or short duration when for other reasons) because: Homebound Reason: Patient requires assistance of a person or device to safely leave home, Post-surgery restriction and or conditions limit ability to leave home, Leaving home requires considerable and taxing effort due to condition Attestation: My signature below is to certify that this patient is under my care and that I, or nurse practitioner, or a physician's purchasing assistant working with me, has a [id number] encounter with this patient.
[2018-01-10 16:08] VITALS: BP 112/83
== END 2018-01-10 18:25 | disposition home health service (06) | DRG 241 ==
LOC: SAMDAY 12:05 → 2NNU 15:46
PROVIDERS: ADMIT Surgery; ATTEND Surgery